=== PATIENT | female | born 1995 | race Caucasian/White ===

== ENCOUNTER 2020-12-30 02:35 | Emergency (ER) | payer OTHER ==
[2020-12-30 03:09] LABS: BASOPHIL 0.3 % (0-2); EOSINOPHIL 0.2 % (0-5); HCT 44.7 % (37.0-47.0); HGB 15.3 g/dl (12.5-16.0); LYMPHOCYTE 4.2 % (15-48); MCH 31.2 pg (25.0-31.0); MCHC 34.2 g/dL (32.0-36.0); MONOCYTE 6.8 % (0-12); NEUTROPHIL 88.2 % (41-80); NRBC 0; PLT 288 K/uL (150-400); RBC 4.91 M/uL (4.20-5.40); RDW 11.9 % (11.5-14.0); WBC 14.2 K/uL (4.0-10.5)
[2020-12-30 03:13] LABS: ALBUMIN 4.1 g/dL (3.4-5.0); BILIRUBIN - TOTAL 1.2 mg/dL (0.2-1.0); CREATININE 0.73 mg/dL (0.51-0.95); GLOBULIN (CALCULATION) 4.1 g/dL; MAGNESIUM 1.7 mg/dL (1.8-2.4); POTASSIUM 4.1 mmol/L (3.5-5.1); TOTAL PROTEIN 8.2 g/dL (6.4-8.2)
[2020-12-30 03:20] LABS: LACTIC ACID 2.5 mmol/L (0.4-1.9)
[2020-12-30 05:01] LABS: BILIRUBIN 1+ mg/dL (NEGATIVE); BLOOD NEGATIVE Ery/uL (NEGATIVE); CLARITY CLEAR (CLEAR); COLOR YELLOW (YELLOW); GLUCOSE (U) NORMAL (NORMAL); LEUKOCYTES NEGATIVE Leu/uL (NEGATIVE); NITRITE NEGATIVE (NEGATIVE); PROTEIN TRACE (LOW) mg/dL (NEGATIVE); UROBILINOGEN 0.2 mg/dL (0.2-1.0)
[2020-12-30] MEDS ORDERED: ONDANSETRON ODT4 MG PO (07:02)
== END 2020-12-30 07:15 | disposition home or self-care (01) ==
LOC: FER 02:35
PROVIDERS: Emergency Medicine
DX: K52.9 Noninfective gastroenteritis and colitis, unspecified (principal); E10.9 Type 1 diabetes mellitus without complications
CPT/HCPCS: 36415; 80053; 81003; 82009; 83605; 83690; 83735; 84145; 85025; 87040; J2405; J7030; Q9967